=== PATIENT | male | born 1965 | race Caucasian/White ===

== ENCOUNTER 2021-10-12 16:54 | Outpatient (RCR) | payer OTHER, SELFPAY ==
--- NOTE | 2021-10-13 07:12 | PTOPEVAL1 ---
Evaluation Information Assessment Status Evaluation Diagnosis neck pain, bilateral shoulder pain Onset 08/21/21 Subjective Information patient reports he injured his neck/shoulder at home working on his deck. he reports he was moving 1x6in boards picking them up and spinning them around to re-allign them on the deck. he reports he then mowed nearly 3 acres. he reports he is better since his initial injury. he reports he is working at [employer]. 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 he reports he did start on some therapy last year for his shoulders up in [place]. he reports the drive was too much to continue. he reports now he has pain in the neck and shoulders. he reports he will get tingling in the neck and upper shoulders (upper traps area). he reports he has no symptoms down in the hands. he reports he has tried a round of oral steroids. he reports he has had an xray up in [place]. These treatments will address the objective and functional deficits as defined above. The patient will be advanced safely and appropriately in order for the patient to progress towards his/her prior level of function. Additional exercises will be introduced and as well as a comprehensive home exercise program upon discharge, if needed, ?to ensure carryover of functional gains achieved in the clinic. This treatment plan has been reviewed and agreement upon by the patient.
--- NOTE | 2021-10-13 08:15 | PTOPEVAL1 ---
Evaluation Information Assessment Status Evaluation Diagnosis neck pain, bilateral shoulder pain Onset 08/21/21 Subjective Information patient reports he injured his neck/shoulder at home working on his deck. he reports he was moving 1x6in boards picking them up and spinning them around to re-allign them on the deck. he reports he then mowed nearly 3 acres. he reports he is better since his initial injury. he reports he is working at [employer]. 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 he reports he did start on some therapy last year for his shoulders up in [place]. he reports the drive was too much to continue. he reports now he has pain in the neck and shoulders. he reports he will get tingling in the neck and upper shoulders (upper traps area). he reports he has no symptoms down in the hands. he reports he has tried a round of oral steroids. he reports he has had an xray up in [place]. These treatments will address the objective and functional deficits as defined above. The patient will be advanced safely and appropriately in order for the patient to progress towards his/her prior level of function. Additional exercises will be introduced and as well as a comprehensive home exercise program upon discharge, if needed, ?to ensure carryover of functional gains achieved in the clinic. This treatment plan has been reviewed and agreement upon by the patient.
--- NOTE | 2021-10-14 08:19 | BUPTOPEVAL1 ---
Evaluation Information Assessment Status Evaluation Diagnosis neck pain, bilateral shoulder pain Onset 08/21/21 Subjective Information patient reports he injured his neck/shoulder at home working on his deck. he reports he was moving 1x6in boards picking them up and spinning them around to re-allign them on the deck. he reports he then mowed nearly 3 acres. he reports he is better since his initial injury. he reports he is working at [employer]. 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 he reports he did start on some therapy last year for his shoulders up in [place]. he reports the drive was too much to continue. he reports now he has pain in the neck and shoulders. he reports he will get tingling in the neck and upper shoulders (upper traps area). he reports he has no symptoms down in the hands. he reports he has tried a round of oral steroids. he reports he has had an xray up in [place]. Reported Pain Level Pain Score 3: Self Report Assessment PT Clinical Summary mr. mcdonald presents to skilled PT services for evaluation and treatment of cervical radiculopathy and neck pain. he presents this date with signs and symptoms of cervical radiculopathy and cervical facet pain. he would do well to attend and participate in skilled PT services to improve his objective/functional deficits and progress towards a return to his prior level functional activity performance and quality of life. Plan of Care Interventions Electrical Stimulation,Hot Pack/Cold Pack,Manual Therapy,Patient/Caregiver Educati,Therapeutic Activities,Therapeutic Exercise PT Services Indicated Yes Treatment Frequency and 2x weekly for 12 visits Duration These treatments will address the objective and functional deficits as defined above. The patient will be advanced safely and appropriately in order for the patient to progress towards his/her prior level of function. Additional exercises will be introduced and as well as a comprehensive home exercise program upon discharge, if needed, ?to ensure carryover of functional gains achieved in the clinic. This treatment plan has been reviewed and agreement upon by the patient.
--- NOTE | 2021-12-03 13:05 | PTOPDC ---
Assessment and note entered by JT File, PT Evaluation Information Assessment Status Discharge Diagnosis neck pain, bilateral shoulder pain Onset 08/21/21 Subjective Information patient reports he feels Alright this date. he reports his pain is still there at times, but he reports feeling he is stronger and able to work longer without increased pain. he reports he has noticed his pain is increased with work activities . he reports he has a follwo up with his referring MD this coming sunday.
== END 2021-12-02 13:40 | disposition home or self-care (01) ==
LOC: CHSPT 16:54
DX: M54.2 Cervicalgia (principal)
CPT/HCPCS: 97014; 97110; 97140; 97161; G0283

== ENCOUNTER 2022-02-09 16:56 | Outpatient (RCR) | payer OTHER, SELFPAY ==
--- NOTE | 2022-02-09 17:45 | PTOPEVAL1 ---
Assessment and note entered by JT File, PT Evaluation Information Assessment Status Evaluation Diagnosis chronic bilateral shoulder pain Onset 01/27/22 Subjective Information patient reports he has had pain in the bilateral shoulders for years. he reports he had an injection to the bilateral shoulder. he reports this helped his arthiric pain in the shoulders. he reports he has increased pain in the bilateral shoulders with work and upper extremity usage. he works in [employer] and uses his arms/hands all day. he reports he is restricted in lifting out to his side to a certain point. he reports the R shoulder is worse than the L. he reports he has to help the R arm hold up a quart of glue. Reported Pain Level Pain Score 7: Self Report Assessment PT Clinical Summary mr. mcdonald presents to skilled PT services for evaluation and treatment of bilateral shoulder pain. he presents with worse pain in the R shoulder compared to the L. 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 he would benefit from continued skilled PT to improve his objective/functional deficits and improve his functional activity performance/quality of life. Plan of Care Interventions Electrical Stimulation,Hot Pack/Cold Pack,Manual Therapy,Neuro Re-education,Patient/Caregiver Educati,Therapeutic Activities,Therapeutic Exercise PT Services Indicated Yes Treatment Frequency and 2x weekly for 12 visits Duration These treatments will address the objective and functional deficits as defined above. The patient will be advanced safely and appropriately in order for the patient to progress towards his/her prior level of function. Additional exercises will be introduced and as well as a comprehensive home exercise program upon discharge, if needed, ?to ensure carryover of functional gains achieved in the clinic. This treatment plan has been reviewed and agreement upon by the patient.
--- NOTE | 2022-03-21 17:52 | PTOPDC ---
Assessment and note entered by JT File, PT Evaluation Information Assessment Status Discharge Diagnosis chronic bilateral shoulder pain Onset 01/27/22 Subjective Information patient reports he has been having more pain lately due to increased work. he reports the more he uses the arms the more they hurt, and the longer they take to calm down. Reported Pain Level Pain Score 6: Self Report Assessment PT Clinical Summary mr. mcdonald presents to skilled PT services for his 12th skilled therapy visit for bilateral shoulder pain. he presents this date with increased pain in the bilateral shoulders lately (worse on the R), weak and painful mmt, positive special test for RTC pathology, but full rom. he has made minimal progress towards goals due to his more recent flare up of pain from increased work and UE activities. he would do well to return to [facility] to communicate about steps moving forward regarding options for additional injections or surgery. he will DC skilled PT services today and continue with HEP independent. Plan of Care Treatment Frequency and DC to independent HEP and follow up with MD Duration
== END 2022-03-21 08:58 | disposition home or self-care (01) ==
LOC: CHSPT 16:56
DX: M25.511 Pain in right shoulder (principal); M25.512 Pain in left shoulder
CPT/HCPCS: 97014; 97110; 97161; 97530; G0283

== ENCOUNTER 2022-05-23 17:02 | Outpatient (RCR) | payer OTHER, SELFPAY ==
[2022-05-23 17:00] VITALS: BP_SYST 160
--- NOTE | 2022-05-23 17:46 | PTOPEVAL1 ---
Assessment and note entered by Janeen Mcnalyl DPT Evaluation Information Assessment Status Evaluation Diagnosis R shoulder pain Onset 05/10/22 Subjective Information Patient reports R shoulder pain for many years with the last year increasing. He works at the [employer] and uses his arm all day. He has had PT before and has had good results. He had an MRI in [place] and that showed a tear in the RTC. He has chosen conservative treatment with injections and PT. Patient reports difficulty with lifting, pushing and pulling. His last cortisone injection wsa ~2 weeks. RTMD in June Reported Pain Level Pain Score 3: Self Report Assessment PT Clinical Summary Patient is a 56 year old male who presents to PT with R shoulder pain due to RTC tear. He demonstrates decreased R shoulder AROM and decreased B shoulder strength limiting his ability to lift, push and pull for work duties. He would benefit from skilled PT to address impairments and return to PLOF. Plan of Care Interventions Electrical Stimulation,Hot Pack/Cold Pack,Manual Therapy,Mechanical Traction,Neuro Re-education, Patient/Caregiver Educati,Therapeutic Activities, Therapeutic Exercise PT Services Indicated Yes Treatment Frequency and 2x weekly for 12 visits Duration These treatments will address the objective and functional deficits as defined above. The patient will be advanced safely and appropriately in order for the patient to progress towards his/her prior level of function. Additional exercises will be introduced and as well as a comprehensive home exercise program upon discharge, if needed, ?to ensure carryover of functional gains achieved in the clinic. This treatment plan has been reviewed and agreement upon by the patient.
--- NOTE | 2022-06-29 10:34 | PTOPPROGNS ---
Assessment and note entered by JT File, PT Evaluation Information Assessment Status Progress Diagnosis R shoulder pain Onset 05/10/22 Subjective Information patient reports he feels alright this date. he reports he returns to see the MD on July 24. he reports he continus to have pain in the R shoulder . he reports his shoulder pain is tolerable except for while at work all day and performing heacy work and household lifting/chores. Assessment PT Clinical Summary mr. mcdonald presents to skilled PT for his 10th skilled therapy visit today. he presents with continued reports of pain and difficulty completing heavy house hold chores and lifting. he displays improved R shoulder arom, but continued weakness and pain in the R shoulder. he is progressing towards goals, and met goals for HEP and flexion rom. he would benefit from continued skilled PT per his initial POC frequency/duration. Plan of Care Interventions Electrical Stimulation,Hot Pack/Cold Pack,Manual Therapy,Mechanical Traction,Neuro Re-education, Patient/Caregiver Educati,Therapeutic Activities, Therapeutic Exercise PT Services Indicated Yes Treatment Frequency and continue skilled PT per initial POC frequency and Duration duration. These treatments will address the objective and functional deficits as defined above. The patient will be advanced safely and appropriately in order for the patient to progress towards his/her prior level of function. Additional exercises will be introduced and as well as a comprehensive home exercise program upon discharge, if needed, ?to ensure carryover of functional gains achieved in the clinic. This treatment plan has been reviewed and agreement upon by the patient.
--- NOTE | 2022-06-29 17:41 | PTOPDC ---
Assessment and note entered by Janeen Mcnally DPT Evaluation Information Assessment Status Re-evaluation Diagnosis R shoulder pain Onset 05/10/22 Subjective Information patient reports that he is going out of town for 2 weeks. He returns to [facility] on July 24. He reports he has been less compliant with HEP due to pain after work. He thinks his last injection has worn off. He reports most difficulty with sanding and picking up the jose Reported Pain Level Pain Score 4: Self Report Pain Score 5: Self Report Assessment PT Clinical Summary Patient was seen for 12 visits of skilled PT. Patient partially met set goals with improved functiional mobility and ROM. Mr. Stout continues to lack strength at the R shoulder and has increased pain especialy after work. He is going out of town for a period of time and is independent with his HEP. He follows up with MD on 07/24/22 and will be discharged at this time. Plan of Care PT Services Indicated No
--- NOTE | 2022-06-29 17:42 | PTOPDC ---
Assessment and note entered by Janeen Mcnally DPT Evaluation Information Assessment Status Re-evaluation Diagnosis R shoulder pain Onset 05/10/22 Subjective Information patient reports that he is going out of town for 2 weeks. He returns to [place] on July 24. He reports he has been less compliant with HEP due to pain after work. He thinks his last injection has worn off. He reports most difficulty with sanding and picking up the jose Reported Pain Level Pain Score 4: Self Report Pain Score 5: Self Report Assessment PT Clinical Summary Patient was seen for 12 visits of skilled PT. Patient partially met set goals with improved functional mobility and ROM. Mr. Stout continues to lack strength at the R shoulder and has increased pain especially after work. He is going out of town for a period of time and is independent with his HEP. He follows up with MD on 07/24/22 and will be discharged at this time. Plan of Care PT Services Indicated No
== END 2022-06-29 20:15 | disposition home or self-care (01) ==
LOC: CHSPT 17:02
DX: M75.41 Impingement syndrome of right shoulder (principal)
CPT/HCPCS: 97014; 97110; 97140; 97161; 97530; G0283